=== PATIENT | female | born 1950 | race Caucasian/White ===

== ENCOUNTER 2016-05-22 15:29 | Emergency (ER) | payer OTHER ==
[2016-05-22 15:36] VITALS: O2SAT 94
--- NOTE | 2016-05-22 16:00 | EDPHY ---
H & P Stated Complaint: abd/low back pain/pressure with urination Time Seen by Provider: 05/22/16 15:47 HPI/ROS: CHIEF COMPLAINT: Inguinal pain, cloudy urine and back pain HISTORY OF PRESENT ILLNESS: The patient is a 65-year-old female who states that she has had intermittent inguinal pain for the last 3 weeks. No discoloration or swelling. Then over the last 2 days she has had bilateral low back pain. No fevers. No trauma. No weakness or numbness. No bleeding. No diarrhea or constipation. No nausea vomiting. Then today she had very cloudy urine. She is here wondering if she has a urine infection. She denies dysuria. She denies frequency. She occasionally has sweats but contributes this to menopause. REVIEW OF SYSTEMS: Constitutional: denies: chills, fever, recent illness, recent injury EENTM: denies: blurred vision, double vision, nose congestion Respiratory: denies: cough, shortness of breath Cardiac: denies: chest pain, irregular heart rate, lightheadedness, palpitations Gastrointestinal/Abdominal: denies: abdominal pain, diarrhea, nausea, vomiting, blood streaked stools Genitourinary: See HPI Musculoskeletal: See HPI Skin: denies: lesions, rash, jaundice, bruising Neurological: denies: headache, numbness, paresthesia, tingling, dizziness, weakness Hematologic/Lymphatic: denies: blood clots, easy bleeding, easy bruising Immunologic/allergic: denies: HIV/AIDS, transplant EXAM: GENERAL: Well-appearing, well-nourished and in no acute distress. HEAD: Atraumatic, normocephalic. EYES: Pupils equal round and reactive to light, extraocular movements intact, sclera anicteric, conjunctiva are normal. ENT: TMs normal, nares patent, oropharynx clear without exudates. Moist mucous membranes. NECK: Normal range of motion, supple without lymphadenopathy or JVD. LUNGS: Breath sounds clear to auscultation bilaterally and equal. No wheezes rales or rhonchi. HEART: Regular rate and rhythm without murmurs, rubs or gallops. ABDOMEN: Soft, nontender, normoactive bowel sounds. No guarding, no rebound. No masses appreciated. BACK: No CVA tenderness, no spinal tenderness, step-offs or deformities EXTREMITIES: Normal range of motion, no pitting or edema. No clubbing or cyanosis. NEUROLOGICAL: Cranial nerves II through XII grossly intact. Normal speech, normal gait. 5/5 strength, normal movement in all extremities, normal sensation PSYCH: Normal mood, normal affect. SKIN: Warm, dry, normal turgor, no visible rashes or lesions. Source: Patient Exam Limitations: No limitations - Personal History Current Tetanus/Diphtheria Vaccine: Yes - Medical/Surgical History Hx Asthma: No Hx Chronic Respiratory Disease: No Hx Diabetes: No Hx Cardiac Disease: No Hx Renal Disease: No Hx Cirrhosis: No Hx Alcoholism: No Hx HIV/AIDS: No Hx Splenectomy or Spleen Trauma: No Other PMH: L5 SPINAL IMPINGEMENT - Family History Significant Family History: Hypertension - Social History Smoking Status: Former smoker Alcohol Use: Sober Drug Use: None Constitutional: Initial Vital Signs Temperature (C) 37 C 05/22/16 15:34 Heart Rate 106 H 05/22/16 15:34 Respiratory Rate 20 05/22/16 15:34 Blood Pressure 123/97 H 05/22/16 15:34 O2 Sat (%) 94 05/22/16 15:34 O2 Delivery Mode Room Air Allergies/Adverse Reactions: cefuroxime axetil [From Ceftin] Allergy (Intermediate, Verified 05/22/16 15:31) Other-Enter Comments clarithromycin [From Biaxin] Allergy (Intermediate, Verified 05/22/16 15:31) SEVERE VAG ITCHING erythromycin base [Erythromycin Base] Allergy (Unknown, Verified 05/22/16 15:31) Unknown PERFUMES, CERTAIN SCENTS Allergy (Intermediate, Uncoded 03/24/15 10:55) Other-Enter Comments Home Medications: Medication Instructions Recorded FLUoxetine [Prozac 20 MG (*)] 40 mg PO DAILY 06/11/14 Famotidine [Pepcid 20 MG (*)] 40 mg PO DAILY 06/11/14 Herbals/Supplements -Info Only 1 ea PO DAILY 06/11/14 Multivits-Min/Iron/FA/Lutein 1 each PO DAILY 06/11/14 [Centrum Silver Women Tablet] [place]-3 Fatty Acids [Fish Oil 1000 1,000 mg PO TID 06/11/14 mg (*)] Pantoprazole Sodium [Protonix 40mg 40 mg PO DAILY 06/11/14 (*)] traMADol [Ultram 50 mg (*)] 50 mg PO Q4 PRN 06/11/14 Docusate Sodium [Colace 100 MG (*)] 100 mg PO BID #40 cap 06/27/14 Ondansetron Odt [Zofran Odt 4 mg 4 mg PO Q4 PRN #20 tab 06/27/14 (*)] Cephalexin [Keflex] 500 mg PO TID #21 cap 05/22/16 Myrbetriq 05/22/16 Medical Decision Making ED Course/Re-evaluation: The patient's urine is clearly infected. This adequately explains her symptoms. I will treat her with Keflex. She states that she has taken cephalosporins before without any difficulty. She did C diff after taking cefuroxime But was not technically allergic. We discussed cultures and results in 2 days. We discussed indications for returning. She is nontoxic Or septic appearing currently. Differential Diagnosis: Partial list of the Differential diagnosis considered include but were not limited to; urinary tract infection, kidney stone, hernia and although unlikely based on the history and physical exam, I also considered PID, diverticulitis. I discussed these differential diagnoses and the plan with the patient as well as the usual and expected course. The patient understands that the diagnosis is provisional and that in medicine we are not always correct and that further workup is often warranted. Usual and customary warnings were given. All of the patient's questions were answered. The patient was instructed to return to the emergency department should the symptoms at all worsen or return, otherwise to followup with the physician as we discussed. - Data Points Laboratory Results: 05/22/16 16:17 Urine Color YELLOW Urine Appearance MODERATELY TURBID Urine pH 5.0 (5.0-7.5) Ur Specific [place] 1.013 (1.002-1.030) Urine Protein 2+ H (NEGATIVE) Urine Ketones NEGATIVE (NEGATIVE) Urine Blood 2+ H (NEGATIVE) Urine Nitrate POSITIVE H (NEGATIVE) Urine Bilirubin NEGATIVE (NEGATIVE) Urine Urobilinogen NEGATIVE EU (0.2-1.0) Ur Leukocyte Esterase 3+ H (NEGATIVE) Urine RBC 15-25 H /hpf (0-3) Urine WBC 50-182 H /hpf (0-3) Ur Epithelial Cells 2+ H /lpf (NONE-1+) Urine Bacteria 1+ H /hpf (NONE SEEN) Urine Mucus TRACE /lpf (NONE-1+) Ur Culture Indicated? INDICATED H (NI) Urine Glucose NEGATIVE (NEGATIVE) Medications Given: Discontinued Medications Cephalexin HCl (Keflex) 500 mg PO EDNOW ONE PRN Reason: Protocol Stop: 05/22/16 16:53 Last Admin: 05/22/16 17:09 Dose: 500 mg Departure - Departure Disposition: Home, Routine, Self-Care Clinical Impression: Urinary tract infection Qualifiers: Urinary tract infection type: acute cystitis Hematuria presence: without hematuria Qualifier Code: (N30.00) Acute cystitis without hematuria Condition: Fair Instructions: Urinary Tract Infection in Women (ED) Referrals: Silvia Vazquez MD [Primary Care Provider] - As per Instructions Prescriptions: Cephalexin [Keflex] 500 mg PO TID #21 cap
[2016-05-22 16:40] LABS: COLOR YELLOW; LEUKOCYTE ESTERASE,URINE 3+ (NEGATIVE); NITRITE,URINE POSITIVE (NEGATIVE)
[2016-05-22 16:43] LABS: BACTERIA 1+ /hpf (NONE SEEN); MUCUS TRACE /lpf (NONE-1+); RBC,URINE 15-25 /hpf (0-3); WBC,URINE 50-182 /hpf (0-3)
[2016-05-22] MEDS ORDERED: CEPHALEXIN 500 MG CAP PO ONE (16:52)
[2016-05-22 17:19] VITALS: BP 142/84; PULSE 89; RESP 16; TEMP 99.6
== END 2016-05-22 17:15 | disposition home or self-care (01) ==
DX: N30.00 Acute cystitis without hematuria (principal); B96.89 Other specified bacterial agents as the cause of diseases classified elsewhere; Z87.891 Personal history of nicotine dependence

== ENCOUNTER 2016-10-21 10:32 | Emergency (ER) | payer OTHER ==
[2016-10-21 10:48] VITALS: TEMP 97.7
[2016-10-21 11:59] LABS: % IMMATURE GRANULYOCYTES 0.5 % (0.0-1.1); ABSOLUTE IMMATURE GRANULOCYTES 0.03 10^3/uL (0.00-0.10); ADD DIFF? NO; ADD MORPH? NO; ADD SCAN? NO; ATYPICAL LYMPHOCYTE FLAG 10 (0-99); FRAGMENT RBC FLAG 0 (0-99); HEMATOCRIT 42.1 % (38.0-47.0); HEMOGLOBIN 14.6 g/dL (12.6-16.3); LEFT SHIFT FLG 0 (0-99); LIPEMIA HEMOLYSIS FLAG 90 (0-99); MEAN CELL HEMOGLOBIN 33.6 pg (27.9-34.1); MEAN CELL HEMOGLOBIN CONCENTR. 34.7 g/dL (32.4-36.7); MEAN CELL VOLUME 96.8 fL (81.5-99.8); MEAN PLATELET VOLUME 10.5 fL (8.7-11.7); PLATELET CLUMPS FLAG 0 (0-99); PLATELET COUNT 291 10^3/uL (150-400); RED BLOOD CELL COUNT 4.35 10^6/uL (4.18-5.33); RED CELL DISTRIBUTION WIDTH 12.7 % (11.5-15.2)
[2016-10-21 12:04] LABS: ANION GAP 9 mEq/L (8-16); CALCIUM 9.8 mg/dL (8.5-10.4); CARBON DIOXIDE 23 mEq/l (22-31); CHLORIDE 105 mEq/L (97-110); GLOMERULAR FILTRATION RATE 56; GLUCOSE 87 mg/dL (70-100); POTASSIUM 4.2 mEq/L (3.5-5.2); SODIUM 137 mEq/L (134-144)
[2016-10-21 12:14] LABS: COLOR PALE YELLOW; NITRITE,URINE NEGATIVE (NEGATIVE)
[2016-10-21 12:19] LABS: LEUKOCYTE ESTERASE,URINE NEGATIVE (NEGATIVE)
[2016-10-21] MEDS ORDERED: HYDROmorphONE/DILAUDID 1 MG/ML SYR IVP ONE (12:58)
[2016-10-21] MEDS ORDERED: ONDANSETRON 4 MG/2 ML VIAL IVP ONE (12:58)
[2016-10-21] MEDS ORDERED: IOPAMIDOL (ISOVUE-300) 100 ML BTL ONE (13:05)
[2016-10-21 13:20] LABS: ALBUMIN 4.3 g/dL (3.5-5.0); BILIRUBIN,TOTAL 1.1 mg/dL (0.1-1.4); BILIRUBIN-CONJUGATED 0.4 mg/dL (0.0-0.5); BILIRUBIN-UNCONJUGATED 0.7 mg/dL (0.0-1.1); TOTAL PROTEIN 6.7 g/dL (6.3-8.2)
[2016-10-21 14:10] VITALS: RESP 16
--- NOTE | 2016-10-21 14:22 | EDPHY ---
H & P Smoking Status: Former smoker Time Seen by Provider: 10/21/16 12:44 HPI/ROS: CHIEF COMPLAINT: Abdominal pain HISTORY OF PRESENT ILLNESS: 65-year-old female presents to the emergency department with diffuse abdominal pain. The pain began 2 days ago and then improved and then recurred early this morning. She also had severe left flank pain which is now resolved. No nausea or vomiting. No diarrhea. Her appetite has been normal. No chest pain or difficulty breathing. No fevers or chills. No reported trauma. No urinary symptoms. No treatment at home. REVIEW OF SYSTEMS: Constitutional: No fever, no chills. Eyes: No double or blurry vision. ENT: No sore throat. Respiratory: No cough, no shortness of breath. Cardiac: No chest pain. Gastrointestinal: Abdominal pain as above. No vomiting or diarrhea Genitourinary: No dysuria. Musculoskeletal: No neck or back pain. Skin: No rashes. Neurological: No headache. 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 Eyes: Pupils equal and round. Extraocular motions are all intact. ENT: Mouth: Mucous membranes moist. Respiratory: No wheezing, rhonchi, or rales, lungs are clear to auscultation. Cardiovascular: Regular rate and rhythm. Gastrointestinal: Abdomen is soft. She has tenderness with palpation especially in the epigastric area as well as just inferior to this area. She is also tender in the left and the right lower quadrant. There is no rebound, guarding or masses noted. No peritoneal signs. No CVA tenderness on the right, however she does have tenderness with palpation in the left flank. No rash appreciated. Specifically no vesicular lesions. Neurological: Alert and oriented x 3, cranial nerves II through XII grossly intact Skin: Warm and dry, no rashes. Musculoskeletal: Nontender to palpate along the cervical, thoracic or lumbar spine. Neck is supple. Extremities: Full range of motion and no peripheral edema. Psychiatric: Patient is oriented X 3, there is no agitation. (Ute Lloyd) Constitutional: Initial Vital Signs Temperature (C) 36.5 C 10/21/16 10:46 Heart Rate 80 10/21/16 10:46 Respiratory Rate 18 10/21/16 10:46 Blood Pressure 146/95 H 10/21/16 10:46 O2 Sat (%) 98 10/21/16 10:46 O2 Delivery Mode Room Air Allergies/Adverse Reactions: cefuroxime axetil [From Ceftin] Allergy (Intermediate, Verified 10/21/16 10:44) Other-Enter Comments clarithromycin [From Biaxin] Allergy (Intermediate, Verified 10/21/16 10:44) SEVERE VAG ITCHING erythromycin base [Erythromycin Base] Allergy (Unknown, Verified 10/21/16 10:44) Unknown PERFUMES, CERTAIN SCENTS Allergy (Intermediate, Uncoded 03/24/15 10:55) Other-Enter Comments Home Medications: Medication Instructions Recorded FLUoxetine [Prozac 20 MG (*)] 40 mg PO DAILY 06/11/14 Famotidine [Pepcid 20 MG (*)] 40 mg PO DAILY 06/11/14 Pantoprazole Sodium [Protonix 40mg 40 mg PO DAILY 06/11/14 (*)] Myrbetriq 05/22/16 Medical Decision Making - Diagnostics EKG Interpretation: EKG interpreted by me shows normal sinus rhythm with normal interval. Left axis deviation. QRS is normal there is no significant ST elevation or depression. There is no arrhythmia. The rate is 67 (Malik Ribeiro) ED Course/Re-evaluation: 65-year-old female presents to the emergency department with abdominal pain. An IV was established and laboratory studies were drawn. CBC, chemistries including LFTs and lipase and urine were all within normal limits. Patient continued to complain of ongoing abdominal pain. Given her history of previous carcinoid tumor, CT imaging of the abdomen and pelvis was ordered which was essentially unremarkable. No evidence of obstruction or mass. EKG was also performed which revealed normal sinus rhythm. Case was discussed with Dr. Malik Ribeiro, secondary supervising physician, who did not directly evaluate the patient but agrees with discharge the patient agrees with treatment and plan. The patient states "I'm starving." The patient was instructed to have close follow-up with primary care provider. She was also instructed to return to the emergency department if she developed recurring abdominal pain, vomiting, fever, chills, or if she felt worse in any way. (Ute Lloyd) I did not see this patient while she was in the emergency department. However her care was discussed with the PA while the patient was in the department. I agree with treatment plan and management (Malik Ribeiro) Differential Diagnosis: Including but not limited to bowel obstruction, gastritis, cholecystitis, cholelithiasis, pancreatitis, hepatitis, kidney stone, pyelonephritis, colitis, bowel obstruction (Ute Lloyd) - Data Points Laboratory Results: Laboratory Results 10/21/16 11:25 10/21/16 11:25 Medications Given: Discontinued Medications Hydromorphone HCl (Dilaudid) 0.5 mg IVP EDNOW ONE Stop: 10/21/16 12:59 Last Admin: 10/21/16 13:53 Dose: 0.5 mg Ondansetron HCl (Zofran) 4 mg IVP EDNOW ONE Stop: 10/21/16 12:59 Last Admin: 10/21/16 13:53 Dose: 4 mg Departure - Departure Disposition: Home, Routine, Self-Care Clinical Impression: Abdominal pain Condition: Good Instructions: Acute Abdominal Pain (ED) Additional Instructions: Diet and activity as tolerated. Abdominal Pain: Return to the Emergency Department immediately for increasing pain, fever, vomiting, or if not completely better in 8-12 hours. Referrals: Silvia Vazquez MD [Primary Care Provider] - 1-2 days without fail
--- NOTE | 2016-10-21 14:43 | CPEKG ---
Heart Rate: 67 RR Interval: 896 P-R Interval: 164 QRSD Interval: 94 QT Interval: 428 QTC Interval: 452 P [place]: 55 QRS [place]: -30 T Wave [place]: 22 EKG Severity - OTHERWISE NORMAL ECG - EKG Impression: SINUS RHYTHM EKG Impression: LEFT AXIS DEVIATION Electronically Signed By: Malik Ribeiro 21-Oct-2016 16:13:35
[2016-10-21 15:22] VITALS: BP 132/76; PULSE 73; O2SAT 92
== END 2016-10-21 15:20 | disposition home or self-care (01) ==
DX: R10.13 Epigastric pain (principal); Z87.891 Personal history of nicotine dependence
CPT/HCPCS: 96374; J1170; J2405; Q9967

== ENCOUNTER → 2017-04-13 | Outpatient (CLI) | payer OTHER | LOC: FIMAGING 15:42 | PROVIDERS: ATTEND Registered Nurse | DX: Z12.31 Encounter for screening mammogram for malignant neoplasm of breast (principal) | CPT/HCPCS: G0202 ==

== ENCOUNTER → 2018-02-15 | Outpatient (CLI) | payer OTHER | LOC: FIMAGING 11:31 | PROVIDERS: ATTEND Registered Nurse | DX: Z13.820 Encounter for screening for osteoporosis (principal); M85.89 Other specified disorders of bone density and structure, multiple sites; E28.39 Other primary ovarian failure; Z78.0 Asymptomatic menopausal state; Z79.52 Long term (current) use of systemic steroids; Z79.890 Hormone replacement therapy ==

== ENCOUNTER → 2018-04-21 | Outpatient (CLI) | payer OTHER | END | disposition home or self-care (01) | LOC: FIMAGING 14:46 | PROVIDERS: ATTEND Registered Nurse | DX: Z12.31 Encounter for screening mammogram for malignant neoplasm of breast (principal) ==

== ENCOUNTER → 2018-05-26 | Outpatient (CLI) | payer OTHER | LOC: FIMAGING 14:40 | PROVIDERS: ATTEND Internal Medicine Pulmonary Disease | DX: R05 Cough (principal); R06.02 Shortness of breath; J98.11 Atelectasis ==

== ENCOUNTER → 2018-06-07 | Outpatient (CLI) | payer OTHER | LOC: BHFA 11:30 | PROVIDERS: ATTEND Internal Medicine Cardiovascular Disease | DX: R01.1 Cardiac murmur, unspecified (principal) ==

== ENCOUNTER 2018-08-09 17:24 | Inpatient (IN) | payer OTHER ==
--- NOTE | 2018-08-09 18:28 | EDPHY ---
H & P Stated Complaint: back pain Time Seen by Provider: 08/09/18 18:28 HPI/ROS: CHIEF COMPLAINT: Back pain, fever, myalgias HISTORY OF PRESENT ILLNESS: The patient presents the ED with complaints of acute back pain. She does have a history of lumbar disc herniation. She has received epidural steroid injections in the past. Her last epidural injection was in January of last year. The patient did take prednisone today which she has used for sciatica in the past. The patient reports that she has had a chronic cough since April. She denies any dysuria. The patient does report nasal congestion. She denies any abdominal pain, vomiting or diarrhea. The patient reports that the pain in her back is fairly typical of her sciatica. She denies any bowel or bladder dysfunction. She denies saddle anesthesia. REVIEW OF SYSTEMS: A comprehensive 10 point review of systems is otherwise negative aside from elements mentioned in the history of present illness. Source: Patient Exam Limitations: No limitations - Personal History Current Tetanus/Diphtheria Vaccine: Yes Current Tetanus Diphtheria and Acellular Pertussis (TDAP): Yes - Medical/Surgical History Hx Asthma: No Hx Chronic Respiratory Disease: No Hx Diabetes: No Hx Cardiac Disease: No Hx Renal Disease: No Hx Cirrhosis: No Hx Alcoholism: No Hx HIV/AIDS: No Hx Splenectomy or Spleen Trauma: No Other PMH: L5 SPINAL IMPINGEMENT. depression - Social History Smoking Status: Former smoker - Physical Exam Exam: General Appearance: Alert, no distress Eyes: Pupils equal and round no pallor or injection ENT, Mouth: Mucous membranes moist Respiratory: There are no retractions, lungs are clear to auscultation Cardiovascular: Regular rate and rhythm Gastrointestinal: Abdomen is soft and nontender, no masses, bowel sounds normal Neurological: A&O, normal motor function, normal sensory exam, normal cranial nerves Skin: Warm and dry, no rashes Musculoskeletal: Neck is supple nontender Extremities: symmetrical, full range of motion Constitutional: Initial Vital Signs Temperature (C) 38.2 C 08/09/18 17:32 Heart Rate 116 H 08/09/18 17:32 Respiratory Rate 20 08/09/18 17:32 Blood Pressure 150/85 H 08/09/18 17:32 O2 Sat (%) 95 08/09/18 17:32 O2 Delivery Mode Room Air Allergies/Adverse Reactions: cefuroxime axetil [From Ceftin] Allergy (Intermediate, Verified 08/09/18 17:29) Other-Enter Comments clarithromycin [From Biaxin] Allergy (Intermediate, Verified 08/09/18 17:29) SEVERE VAG ITCHING erythromycin base [Erythromycin Base] Allergy (Unknown, Verified 08/09/18 17:29) Unknown PERFUMES, CERTAIN SCENTS Allergy (Intermediate, Uncoded 08/09/18 17:29) Other-Enter Comments Home Medications: Medication Instructions Recorded FLUoxetine [Prozac 20 MG (*)] 40 mg PO DAILY 06/11/14 Famotidine [Pepcid 20 MG (*)] 40 mg PO DAILY 06/11/14 Pantoprazole Sodium [Protonix 40mg 40 mg PO DAILY 06/11/14 (*)] Myrbetriq 05/22/16 Advair 100/50 (*) 08/09/18 Estradiol 08/09/18 Fish Oil 1,000 mg Softgel 08/09/18 Flonase Nasal [place] 08/09/18 Meloxicam 08/09/18 Montelukast Sodium 08/09/18 Ranitidine HCl 08/09/18 Testosterone 08/09/18 Tramadol HCl 08/09/18 Ventolin Hfa 08/09/18 Medical Decision Making - Diagnostics Imaging Results: Imaging Impressions Lumbar Spine MRI 08/09/18 19:36 Impression: No evidence for epidural abscess or diskitis. Multilevel degenerative change, chronically present since October 2016. Results discussed with Dr. Wilbur Chaparro at 9:15 PM Chest X-Ray 08/09/18 21:24 Impression: Nothing acute identified. No source for fever. ED Course/Re-evaluation: Patient presents the ED for evaluation of lumbar pain, sciatic symptoms in acute fever. The patient has had a chronic cough for the past several months and denies any acute change in the character of that cough. She has no complaints of dysuria, abdominal pain or diarrhea. The patient was noted to be neurologically intact. There are no external signs of infection noted on exam. Given her fever and lumbar pain with prior history of epidural steroid injection a MRI with and without contrast was obtained. There is no evidence of an obvious epidural abscess, diskitis or osteomyelitis. The patient is noted to have elevated CRP and leukocytosis. The patient has a negative flu test. At this point time I see no obvious source of a bacterial infection. However I do feel would be prudent to observe the patient this evening. She continues to have ongoing diffuse back pain. She has no meningeal symptoms. Consultation is made with the hospitalist service. Patient will be admitted by Dr. Callejas. Patient does have SIRS + unspecified infection. She has no evidence of severe sepsis. Initial lactic acid is normal. Differential Diagnosis: Differential diagnosis considered includes discitis, osteomyelitis, viral syndrome, bacteremia, urinary tract infection, pyelonephritis, pneumonia - Data Points Laboratory Results: Laboratory Results 08/09/18 18:43 08/09/18 18:43 08/09/18 08/09/18 08/09/18 19:20 18:43 18:43 WBC RBC Hgb Hct 41.1 % % (38.0-47.0) MCV MCH MCHC RDW Plt Count MPV Neut % (Auto) Lymph % (Auto) Stone % (Auto) Eos % (Auto) Baso % (Auto) Nucleat RBC Rel Count Absolute Neuts (auto) Absolute Lymphs (auto) Absolute Monos (auto) Absolute Eos (auto) Absolute Basos (auto) Absolute Nucleated RBC Immature Gran % Immature Gran # RBC/WBC/PLT Morphology Platelet Estimate ESR 12 MM/HR MM/HR (0-30) Sodium Potassium Chloride Carbon Dioxide Anion Gap BUN Creatinine Estimated GFR Glucose Calcium C-Reactive Protein 47.3 mg/L H mg/L (<10.0) Urine Color YELLOW Urine Appearance CLEAR Urine pH 6.0 (5.0-7.5) Ur Specific [place] 1.009 (1.002-1.030) Urine Protein NEGATIVE (NEGATIVE) Urine Ketones NEGATIVE (NEGATIVE) Urine Blood NEGATIVE (NEGATIVE) Urine Nitrate NEGATIVE (NEGATIVE) Urine Bilirubin NEGATIVE (NEGATIVE) Urine Urobilinogen 2.0 EU H EU (0.2-1.0) Ur Leukocyte Esterase NEGATIVE (NEGATIVE) Urine Glucose NEGATIVE (NEGATIVE) Nasal Influenza A PCR Nasal Influenza B PCR 08/09/18 08/09/18 08/09/18 18:43 18:43 18:29 WBC 17.75 10^3/uL H 10^3/uL (3.80-9.50) RBC 4.31 10^6/uL 10^6/uL (4.18-5.33) Hgb 14.5 g/dL g/dL (12.6-16.3) Hct 41.5 % % (38.0-47.0) MCV 96.3 fL fL (81.5-99.8) MCH 33.6 pg pg (27.9-34.1) MCHC 34.9 g/dL g/dL (32.4-36.7) RDW 12.6 % % (11.5-15.2) Plt Count 316 10^3/uL 10^3/uL (150-400) MPV 10.1 fL fL (8.7-11.7) Neut % (Auto) 95.6 % H % (39.3-74.2) Lymph % (Auto) 1.7 % L % (15.0-45.0) Stone % (Auto) 2.0 % L % (4.5-13.0) Eos % (Auto) 0.1 % L % (0.6-7.6) Baso % (Auto) 0.1 % L % (0.3-1.7) Nucleat RBC Rel Count 0.0 % % (0.0-0.2) Absolute Neuts (auto) 16.97 10^3/uL H 10^3/uL (1.70-6.50) Absolute Lymphs (auto) 0.30 10^3/uL L 10^3/uL (1.00-3.00) Absolute Monos (auto) 0.36 10^3/uL 10^3/uL (0.30-0.80) Absolute Eos (auto) 0.02 10^3/uL L 10^3/uL (0.03-0.40) Absolute Basos (auto) 0.02 10^3/uL 10^3/uL (0.02-0.10) Absolute Nucleated RBC 0.00 10^3/uL 10^3/uL (0-0.01) Immature Gran % 0.5 % % (0.0-1.1) Immature Gran # 0.09 10^3/uL 10^3/uL (0.00-0.10) RBC/WBC/PLT Morphology TNP Platelet Estimate TNP ESR Sodium 129 mEq/L L mEq/L (135-145) Potassium 4.4 mEq/L mEq/L (3.5-5.2) Chloride 98 mEq/L mEq/L (97-110) Carbon Dioxide 20 mEq/l L mEq/l (22-31) Anion Gap 11 mEq/L mEq/L (6-14) BUN 11 mg/dL mg/dL (7-23) Creatinine 0.9 mg/dL mg/dL (0.6-1.0) Estimated GFR > 60 Glucose 169 mg/dL H mg/dL (70-100) Calcium 9.9 mg/dL mg/dL (8.5-10.4) C-Reactive Protein Urine Color Urine Appearance Urine pH Ur Specific [place] Urine Protein Urine Ketones Urine Blood Urine Nitrate Urine Bilirubin Urine Urobilinogen Ur Leukocyte Esterase Urine Glucose Nasal Influenza A PCR NEGATIVE FOR FLU A (NEGATIVE) Nasal Influenza B PCR NEGATIVE FOR FLU B (NEGATIVE) Medications Given: Discontinued Medications Hydromorphone HCl (Dilaudid) 0.5 mg IVP EDNOW ONE Stop: 08/09/18 21:27 Last Admin: 08/09/18 21:33 Dose: 0.5 mg Morphine Sulfate (Morphine) 4 mg IVP EDNOW ONE Stop: 08/09/18 19:32 Last Admin: 08/09/18 19:32 Dose: 4 mg Departure - Departure Disposition: [facility] Inpatient Acute Clinical Impression: Fever, Back pain, Sepsis Condition: Fair
[2018-08-09 18:58] LABS: PLATELET COUNT 316 10^3/uL (150-400)
[2018-08-09] MEDS ORDERED: GADOBUTROL 10 ML VIAL IVP ONE (20:21)
[2018-08-09] MEDS ORDERED: HYDROmorphONE/DILAUDID 2 MG/ML INJ IVP ONE (21:26)
[2018-08-09] MEDS ORDERED: HYDROmorphONE/DILAUDID 1 MG/ML INJ ONE (21:27)
[2018-08-09] MEDS ORDERED: ONDANSETRON DISINTEGRATING 4 MG TAB PO PRN (22:22)
[2018-08-09] MEDS ORDERED: HYDROmorphONE/DILAUDID 1 MG/ML INJ IVP PRN (22:22)
[2018-08-09] MEDS ORDERED: ONDANSETRON 4 MG/2 ML VIAL IVP PRN (22:22)
--- NOTE | 2018-08-09 23:29 | PDGENHP ---
History and Physical - Chief Complaint Back pain, fever - History of Present Illness 67 yo F w/ hx of asthma and chronic back pain presents with back pain and fever. The patient has daily, chronic back pain. Her usual pain is described as lower lumbar pain across her entire back with radiation to her R shi/calf. Today she developed pain of the same nature but much greater in severity. She also has noted nasal congestion and body aches. She says she has had several URI 's so far this year. She came in to the ED due to the pain. In the ED she was noted to be febrile, tachycardic, and have an elevated WBC. For this reason an MRI of her L-spine was obtained, which did not demonstrate diskitis, OM, or epidural abscess. She denies any localizing symptoms of infection aside from those listed above. She is being admitted for pain control and observation. Case discussed with Dr. Callejas; records reviewed and summarized above. History Information - Allergies/Home Medication List Allergies/Adverse Reactions: cefuroxime axetil [From Ceftin] Allergy (Intermediate, Verified 08/09/18 17:29) Other-Enter Comments clarithromycin [From Biaxin] Allergy (Intermediate, Verified 08/09/18 17:29) SEVERE VAG ITCHING erythromycin base [Erythromycin Base] Allergy (Unknown, Verified 08/09/18 17:29) Unknown PERFUMES, CERTAIN SCENTS Allergy (Intermediate, Uncoded 08/09/18 17:29) Other-Enter Comments Home Medications: Pantoprazole Sodium [Protonix 40mg (*)] 40 mg PO BID 06/11/14 [Last Taken 09:00] Acetaminophen [Tylenol ES 500 mg (*)] 500 mg PO Q6H PRN 08/09/18 [Last Taken Unknown] Albuterol [Ventolin Hfa Inhaler] 2 puffs IH DAILY PRN 08/09/18 [Last Taken Unknown] Calcium Carb/D3/Magnesium/Zinc [Bassem Mag Zinc + D Tablet] 1 each PO DAILY [Last Taken Unknown] Cholecalciferol (Vitamin D3) [Vitamin D3] 4,000 unit PO DAILY 08/09/18 [Last Taken Unknown] Di-Indole Methane - Dim 300mg 600 mg PO DAILY 08/09/18 [Last Taken 08/09/18 09: 00] Estradiol [Estradiol 1 MG (*)] 0 mg PO HS 08/09/18 [Last Taken 08/08/18 21:00] FLUoxetine HCL [Fluoxetine HCl] 40 mg PO DAILY 08/09/18 [Last Taken 08/09/18 09: 00] Fluticasone Nasal [Flonase Nasal [place] (RX)] 1 sprays NASAL BID 08/09/18 [Last Taken 08/09/18 09:00] Fluticasone/Salmeterol [Advair Hfa 115-21 Mcg Inhaler] 2 puffs IH BID 08/09/18 [ Last Taken 08/09/18 09:00] Herbals/Supplements -Info Only 1 ea PO DAILY 08/09/18 [Last Taken 08/09/18 09:00 ] Lactobacillus Acidophilus [ACIDOPHILUS] 2 each PO DAILY PRN 08/09/18 [Last Taken Unknown] Meloxicam 15 mg PO DAILY 08/09/18 [Last Taken 08/08/18 09:00] Mirabegron [Myrbetriq] 50 mg PO DAILY 08/09/18 [Last Taken 08/09/18 09:00] Montelukast Sodium [Singulair 10 mg (*)] 10 mg PO HS 08/09/18 [Last Taken 21:00] Multivitamins [Multivitamin (*)] 1 each PO DAILY 08/09/18 [Last Taken Unknown] [place]-3S/Dha/Epa/Fish Oil [Fish Oil [place]-3 Softgel] 500 mg PO BID 08/09/18 [ Last Taken 08/06/18] Ranitidine HCl 300 mg PO HS 08/09/18 [Last Taken 08/08/18 21:00] Testosterone Micronized 4 mg PO DAILY 08/09/18 [Last Taken 08/09/18 09:00] traMADol [Ultram 50 mg (*)] 50 mg PO DAILY PRN 08/09/18 [Last Taken Unknown] I have personally reviewed and updated: family history, medical history - Past Medical History arthritis, asthma - Surgical History Additional surgical history: R knee surgery. Rotator cuff surgery - Family History Additional family history: No hx AI disease - Social History Smoking Status: Former smoker Review of Systems Review of Systems: ROS: 10pt was reviewed & negative except for what was stated in HPI & below Physical Exam Physical Exam: Temp Pulse Resp BP Pulse Ox 37.3 C 107 H 17 114/81 H 91 L 08/09/18 22:27 08/09/18 22:27 08/09/18 22:27 08/09/18 22:27 08/09/18 22:27 Constitutional: appears nourished, uncomfortable Eyes: PERRL, EOMI Ears, Nose, Mouth, Throat: moist mucous membranes, oral thrush Cardiovascular: regular rate and rhythym, systolic murmur Respiratory: no respiratory distress, clear to auscultation Gastrointestinal: normoactive bowel sounds, soft, non-tender abdomen Skin: warm, erythema (Nasal bridge, chronic per patient) Musculoskeletal: full muscle strength, other (No TTP along spine) Neurologic: AAOx3, CN II-XII Intact Psychiatric: interacting appropriately, not anxious Lab Data & Imaging Review 08/09/18 18:43 08/09/18 18:43 WBC 17.75 10^3/uL (3.80-9.50) H 08/09/18 18:43 RBC 4.31 10^6/uL (4.18-5.33) 08/09/18 18:43 Hgb 14.5 g/dL (12.6-16.3) 08/09/18 18:43 Hct 41.1 % (38.0-47.0) 08/09/18 18:43 MCV 96.3 fL (81.5-99.8) 08/09/18 18:43 MCH 33.6 pg (27.9-34.1) 08/09/18 18:43 MCHC 34.9 g/dL (32.4-36.7) 08/09/18 18:43 RDW 12.6 % (11.5-15.2) 08/09/18 18:43 Plt Count 316 10^3/uL (150-400) 08/09/18 18:43 MPV 10.1 fL (8.7-11.7) 08/09/18 18:43 Neut % (Auto) 95.6 % (39.3-74.2) H 08/09/18 18:43 Lymph % (Auto) 1.7 % (15.0-45.0) L 08/09/18 18:43 [place] % (Auto) 2.0 % (4.5-13.0) L 08/09/18 18:43 Eos % (Auto) 0.1 % (0.6-7.6) L 08/09/18 18:43 Baso % (Auto) 0.1 % (0.3-1.7) L 08/09/18 18:43 Nucleat RBC Rel Count 0.0 % (0.0-0.2) 08/09/18 18:43 Absolute Neuts (auto) 16.97 10^3/uL (1.70-6.50) H 08/09/18 18:43 Absolute Lymphs (auto) 0.30 10^3/uL (1.00-3.00) L 08/09/18 18:43 Absolute Monos (auto) 0.36 10^3/uL (0.30-0.80) 08/09/18 18:43 Absolute Eos (auto) 0.02 10^3/uL (0.03-0.40) L 08/09/18 18:43 Absolute Basos (auto) 0.02 10^3/uL (0.02-0.10) 08/09/18 18:43 Absolute Nucleated RBC 0.00 10^3/uL (0-0.01) 08/09/18 18:43 Immature Gran % 0.5 % (0.0-1.1) 08/09/18 18:43 Immature Gran # 0.09 10^3/uL (0.00-0.10) 08/09/18 18:43 RBC/WBC/PLT Morphology TNP 08/09/18 18:43 Platelet Estimate TNP 08/09/18 18:43 ESR 12 MM/HR (0-30) 08/09/18 18:43 VBG Lactic Acid 1.3 mmol/L (0.7-2.1) 08/09/18 21:40 Sodium 129 mEq/L (135-145) L 08/09/18 18:43 Potassium 4.4 mEq/L (3.5-5.2) 08/09/18 18:43 Chloride 98 mEq/L (97-110) 08/09/18 18:43 Carbon Dioxide 20 mEq/l (22-31) L 08/09/18 18:43 Anion Gap 11 mEq/L (6-14) 08/09/18 18:43 BUN 11 mg/dL (7-23) 08/09/18 18:43 Creatinine 0.9 mg/dL (0.6-1.0) 08/09/18 18:43 Estimated GFR > 60 08/09/18 18:43 Glucose 169 mg/dL (70-100) H 08/09/18 18:43 Calcium 9.9 mg/dL (8.5-10.4) 08/09/18 18:43 C-Reactive Protein 47.3 mg/L (<10.0) H 08/09/18 18:43 Procalcitonin 0.03 ng/mL (0.02-0.10) 08/09/18 18:43 Urine Color YELLOW 08/09/18 19:20 Urine Appearance CLEAR 08/09/18 19:20 Urine pH 6.0 (5.0-7.5) 08/09/18 19:20 Ur Specific [place] 1.009 (1.002-1.030) 08/09/18 19:20 Urine Protein NEGATIVE (NEGATIVE) 08/09/18 19:20 Urine Ketones NEGATIVE (NEGATIVE) 08/09/18 19:20 Urine Blood NEGATIVE (NEGATIVE) 08/09/18 19:20 Urine Nitrate NEGATIVE (NEGATIVE) 08/09/18 19:20 Urine Bilirubin NEGATIVE (NEGATIVE) 08/09/18 19:20 Urine Urobilinogen 2.0 EU (0.2-1.0) H 08/09/18 19:20 Ur Leukocyte Esterase NEGATIVE (NEGATIVE) 08/09/18 19:20 Urine Glucose NEGATIVE (NEGATIVE) 08/09/18 19:20 Nasal Influenza A PCR NEGATIVE FOR FLU A (NEGATIVE) 08/09/18 18:29 Nasal Influenza B PCR NEGATIVE FOR FLU B (NEGATIVE) 08/09/18 18:29 Imaging Review: Imaging Impressions Lumbar Spine MRI 08/09/18 19:36 Impression: No evidence for epidural abscess or diskitis. Multilevel degenerative change, chronically present since October 2016. Results discussed with Dr. Wilbur Chaparro at 9:15 PM Chest X-Ray 08/09/18 21:24 Impression: Nothing acute identified. No source for fever. Assessment & Plan Assessment: 67 yo F w/ hx of asthma and chronic back pain presents with fever and back pain. Plan: 1. SIRS - Fever, tachycardia, and leukocytosis noted on admission but no source of infection identified. The initial concern was spinal infection noting increased back pain but MRI of the L-spine does not demonstrate evidence of infection. CXR and UA are also not consistent with infection. Her only other symptoms are nasal congestion and body aches so URI or sinusitis are other considerations. - Admit for observation - Blood cultures ordered and pending - Will observe off of antibiotics for now - Obtain respiratory PCR, procalcitonin - If worsening, could consider empirically treating sinusitis or imaging T/L spine 2. Acute on chronic back pain - Bilateral lumbar pain w/ radiation down her R leg. These are her usual back pain symptoms but increased in severity today. MRI L-spine performed on admission stable from prior. - Pain control - PT/OT evaluations - Infectious work-up as above 3. Hyponatremia - Na 129 on admission; this could represent hypovolemia related to infection or SIADH from increased pain. - Obtain [place], [place] - Trial 500 mL NS bolus - Repeat BMP in the AM 4. Asthma - No evidence of acute exacerbation. - Continue home medications pending reconciliation Diet - Regular Code - Full Ppx - LMWH Dispo - Admit under observation status
[2018-08-09] MEDS: oxyCODONE IR 5 MG TAB PO PRN (23:30)
[2018-08-09] MEDS: ACETAMINOPHEN 325 MG TAB PO PRN (23:30)
[2018-08-09] MEDS ORDERED: NS 500 ML IV ONE (23:36)
[2018-08-10] MEDS: oxyCODONE IR 5 MG TAB PO PRN ×3 (04:31→16:12)
[2018-08-10 04:56] LABS: PLATELET COUNT 263 10^3/uL (150-400)
[2018-08-10] MEDS: NYSTATIN SUSP 500000 UNIT/5 ML UD LIQ PO SCH ×4 (05:22→22:55)
[2018-08-10] MEDS: ENOXAPARIN 40 MG/0.4 ML SYR SC SCH (08:20)
[2018-08-10] MEDS: ACETAMINOPHEN 325 MG TAB PO PRN ×2 (11:12→18:02)
--- NOTE | 2018-08-10 13:50 | ASMTCMCOM ---
CM Note CM Note Notes: Pt who has chronic back pain is in [facility] for back pain and fever. Pt resides with . No therapies ordered, discussed with JAYDON Little who reports therapies are not needed for this pt. Anticipate pt will d/c when medically stable, no CM d/c needs identified. CM available for changes/needs. D/c plan: Independent Date Signed: 08/10/2018 01:49 PM Electronically Signed By:YUVAL Thornton
[2018-08-10] MEDS ORDERED: diphenhydrAMINE 25 MG CAP PO PRN (14:12)
[2018-08-10] MEDS ORDERED: traMADol 50 MG TAB PO PRN (14:51)
[2018-08-10] MEDS ORDERED: ACETAMINOPHEN 500 MG TAB PO PRN (14:51)
[2018-08-10] MEDS ORDERED: LACTOBACILLUS ACIDOPHILUS PO PRN (14:51)
[2018-08-10] MEDS ORDERED: predniSONE 20 MG TAB PO ONE (15:02)
--- NOTE | 2018-08-10 15:10 | HOSPPROG ---
Hospitalist Progress Note Assessment/Plan: 67 yo F w chronic lbp, asthma, admited w fever, thrush and now facial rash facial rash: suspect this is rxn to nystatin, given benadryl given concurrent fever, concern for celluliutits 1. pred 40 once 2. empirically treat for cellulitis w vanc , check facial ct fever, dyspnea: on unusual hormone replacement w testosterone- check ct pe low back pain: mri w no abscess, there is no cellulitis on exam, as suggested by MRI asthma: continue meds no wheezing proph: lmwh thrush: fluconazole X 1 attributable to steroid inhaler dispo: change to inpt Subjective: cxr w no infiltrate (interp by me). new facial rash w low grade temps Objective: Vital Signs Temp Pulse Resp BP Pulse Ox 37.7 C 90 16 106/67 95 08/10/18 11:07 08/10/18 11:07 08/10/18 11:07 08/10/18 11:07 08/10/18 11:07 Microbiology 08/10/18 02:30 Respiratory Panel (PCR) - Final Nasal, Sinus - Swab No Organism Detected By Pcr Laboratory Results 08/10/18 04:19 08/10/18 04:19 08/09/18 08/10/18 08/11/18 05:59 05:59 05:59 Intake Total 200 800 Output Total 500 500 Balance -300 300 - Physical Exam Constitutional: no apparent distress, appears nourished Eyes: PERRL, anicteric sclera Ears, Nose, Mouth, Throat: moist mucous membranes, hearing normal, other ( redness w edema on cheeks b/l. warm) Cardiovascular: regular rate and rhythym, no murmur, rub, or gallop Respiratory: no respiratory distress, no rales or rhonchi Gastrointestinal: normoactive bowel sounds, soft, non-tender abdomen Genitourinary: no bladder fullness, hemorrhoids, No martinez in urethra Skin: warm, normal color Musculoskeletal: full muscle strength Neurologic: AAOx3 ICD10 Worksheet Patient Problems: Problems Problem Status Onset Back pain Acute Fever Acute Sepsis Acute Osteoarthritis of knee Acute
[2018-08-10] MEDS ORDERED: IOPAMIDOL (ISOVUE 370) 100 ML BTL IV ONE (15:23)
[2018-08-10] MEDS ORDERED: ALBUTEROL 60 PUFFS/8 GM MDI IH PRN (15:30)
[2018-08-10] MEDS ORDERED: VANCOMYCIN HCL/NORMAL SALINE 250 ML IV SCH (15:30)
[2018-08-10] MEDS ORDERED: VANCOMYCIN 1.5 GM in NS 250 ML IV SCH (16:00)
[2018-08-10] MEDS: Mirabegron [Myrbetriq] 50 MG PO SCH (16:14)
[2018-08-10] MEDS: FLUoxetine 20 MG CAP PO SCH (16:17)
[2018-08-10] MEDS: PANTOPRAZOLE SODIUM 40 MG TAB PO SCH (20:20)
[2018-08-10] MEDS: FLUTICASONE NASAL 120 SPRAYS/16 GM MDI NS SCH (20:22)
--- NOTE | 2018-08-10 20:55 | PDHOSCONS ---
History and Physical - History of Present Illness I was notified at 6:00 pm by daytime RN regarding patient's facial swelling after receiving vancomycin IV. I was at the patient's bedside shortly thereafter. This was my 1st encounter with the patient so unfortunately I was not able to see a baseline; facial swelling and redness had been noted earlier in the day which was acknowledged by daytime hospitalist with imaging and prednisone. CT of face showed no evidence of maxillofacial abscess or definite cellulitis and chest CT a show no definite PE, aortic aneurysm or dissection, pericardial effusion, pleural effusion, pneumothorax or significant adenopathy. It also did not show acute pneumonia or suspicious pulmonary nodules. Objectively speaking, I noted a deep Isaiah erythema to bilateral cheeks with moderate edema and left bilateral eyelids swelling. Bilateral cheeks were taunt. Subjectively, she reported difficulty breathing through her nose however this seems to be a chronic issue and not an acute issue, difficulty smiling and difficulty opening her left eye. She was not compromised with her airways. I instructed the daytime nurse to give her 50 mg of Benadryl and ice packs. Vital signs during this time blood pressure was 121/78, heart rate was 103, and temperature was 37.7 degrees. I evaluated the patient 30 min later. Subjectively speaking, patient reports mild relief with the ability to smile minimally and she felt like her cheeks were not as swollen. Once again airways were not compromised during this time. Objectively, her bilateral cheek erythema had reduced to a moderate erythema and her cheeks were less taut. Vital signs at this time blood pressure is 121/ 78 heart rate was 82 respirations were 14 and she is on 93 % with 1 L oxygen. I once again re-evaluated the patient an hour later. Subjectively, she reports feeling much more alert than before however feeling fatigued due to the Benadryl dose, she is able to breathe a little bit easier through her nose, and she feels her bilateral cheek edema has decreased. Her left eye still reports to have some swelling. Objectively speaking, she appears much improved with now a mild bilateral erythema to her cheeks, left swelling in the area, and does appear to be more alert. Her left eye continues to have [id number] swelling. During the last hour or so, she never complained of headache, vision changes, being in respiratory distress, chest pain, palpitations, nausea, or any other noted rashes appearing. I have now placed Benadryl 50 mg IV push every 4 hr p.r.n. Into the order set. I am uncertain as to what is causing this reaction. The daytime nurse believed to be the nystatin because she experienced similar reaction after receiving nystatin. For this reason I will hold nystatin tonight and this will need to be re-evaluated tomorrow by daytime physician. I spoke to nighttime nurse, Daisy, and she is fully aware of the situation. I encouraged the patient to informed the night nurse if her symptoms worsen. I gave report to cross coverage hospitalist regarding patient and occurring about events. History Information - Allergies/Home Medication List Allergies/Adverse Reactions: cefuroxime axetil [From Ceftin] Allergy (Intermediate, Verified 08/09/18 17:29) Other-Enter Comments clarithromycin [From Biaxin] Allergy (Intermediate, Verified 08/09/18 17:29) SEVERE VAG ITCHING erythromycin base [Erythromycin Base] Allergy (Unknown, Verified 08/09/18 17:29) Unknown PERFUMES, CERTAIN SCENTS Allergy (Intermediate, Uncoded 08/09/18 17:29) Other-Enter Comments Home Medications: Pantoprazole Sodium [Protonix 40mg (*)] 40 mg PO BID 06/11/14 [Last Taken 09:00] Acetaminophen [Tylenol ES 500 mg (*)] 500 mg PO Q6H PRN 08/09/18 [Last Taken Unknown] Albuterol [Ventolin Hfa Inhaler] 2 puffs IH DAILY PRN 08/09/18 [Last Taken Unknown] Calcium Carb/D3/Magnesium/Zinc [Bassem Mag Zinc + D Tablet] 1 each PO DAILY [Last Taken Unknown] Cholecalciferol (Vitamin D3) [Vitamin D3] 4,000 unit PO DAILY 08/09/18 [Last Taken Unknown] Di-Indole Methane - Dim 300mg 600 mg PO DAILY 08/09/18 [Last Taken 08/09/18 09: 00] Estradiol [Estradiol 1 MG (*)] 0 mg PO HS 08/09/18 [Last Taken 08/08/18 21:00] FLUoxetine HCL [Fluoxetine HCl] 40 mg PO DAILY 08/09/18 [Last Taken 08/09/18 09: 00] Fluticasone Nasal [Flonase Nasal [place] (RX)] 1 sprays NASAL BID 08/09/18 [Last Taken 08/09/18 09:00] Fluticasone/Salmeterol [Advair Hfa 115-21 Mcg Inhaler] 2 puffs IH BID 08/09/18 [ Last Taken 08/09/18 09:00] Herbals/Supplements -Info Only 1 ea PO DAILY 08/09/18 [Last Taken 08/09/18 09:00 ] Lactobacillus Acidophilus [ACIDOPHILUS] 2 each PO DAILY PRN 08/09/18 [Last Taken Unknown] Meloxicam 15 mg PO DAILY 08/09/18 [Last Taken 08/08/18 09:00] Mirabegron [Myrbetriq] 50 mg PO DAILY 08/09/18 [Last Taken 08/09/18 09:00] Montelukast Sodium [Singulair 10 mg (*)] 10 mg PO HS 08/09/18 [Last Taken 21:00] Multivitamins [Multivitamin (*)] 1 each PO DAILY 08/09/18 [Last Taken Unknown] [place]-3S/Dha/Epa/Fish Oil [Fish Oil [place]-3 Softgel] 500 mg PO BID 08/09/18 [ Last Taken 08/06/18] Ranitidine HCl 300 mg PO HS 08/09/18 [Last Taken 08/08/18 21:00] Testosterone Micronized 4 mg PO DAILY 08/09/18 [Last Taken 08/09/18 09:00] traMADol [Ultram 50 mg (*)] 50 mg PO DAILY PRN 08/09/18 [Last Taken Unknown] I have personally reviewed and updated: family history, medical history, social history, surgical history - Past Medical History arthritis, asthma - Surgical History Additional surgical history: R knee surgery. Rotator cuff surgery - Family History Additional family history: No hx AI disease - Social History Smoking Status: Former smoker Review of Systems Review of Systems: Physical Exam Physical Exam: Temp Pulse Resp BP Pulse Ox 36.9 C 100 16 135/77 H 92 08/10/18 20:19 08/10/18 19:18 08/10/18 19:18 08/10/18 19:18 08/10/18 19:18 O2 (L/minute) 93 Lab Data & Imaging Review 08/10/18 04:19 08/10/18 04:19 WBC 13.24 10^3/uL (3.80-9.50) H 08/10/18 04:19 RBC 3.74 10^6/uL (4.18-5.33) L 08/10/18 04:19 Hgb 12.5 g/dL (12.6-16.3) L 08/10/18 04:19 Hct 36.7 % (38.0-47.0) L 08/10/18 04:19 MCV 98.1 fL (81.5-99.8) 08/10/18 04:19 MCH 33.4 pg (27.9-34.1) 08/10/18 04:19 MCHC 34.1 g/dL (32.4-36.7) 08/10/18 04:19 RDW 12.8 % (11.5-15.2) 08/10/18 04:19 Plt Count 263 10^3/uL (150-400) 08/10/18 04:19 MPV 10.2 fL (8.7-11.7) 08/10/18 04:19 Neut % (Auto) 86.0 % (39.3-74.2) H 08/10/18 04:19 Lymph % (Auto) 6.9 % (15.0-45.0) L 08/10/18 04:19 [place] % (Auto) 6.4 % (4.5-13.0) 08/10/18 04:19 Eos % (Auto) 0.0 % (0.6-7.6) L 08/10/18 04:19 Baso % (Auto) 0.2 % (0.3-1.7) L 08/10/18 04:19 Nucleat RBC Rel Count 0.0 % (0.0-0.2) 08/10/18 04:19 Absolute Neuts (auto) 11.39 10^3/uL (1.70-6.50) H 08/10/18 04:19 Absolute Lymphs (auto) 0.91 10^3/uL (1.00-3.00) L 08/10/18 04:19 Absolute Monos (auto) 0.85 10^3/uL (0.30-0.80) H 08/10/18 04:19 Absolute Eos (auto) 0.00 10^3/uL (0.03-0.40) L 08/10/18 04:19 Absolute Basos (auto) 0.02 10^3/uL (0.02-0.10) 08/10/18 04:19 Absolute Nucleated RBC 0.00 10^3/uL (0-0.01) 08/10/18 04:19 Immature Gran % 0.5 % (0.0-1.1) 08/10/18 04:19 Immature Gran # 0.07 10^3/uL (0.00-0.10) 08/10/18 04:19 RBC/WBC/PLT Morphology TNP 08/09/18 18:43 Platelet Estimate TNP 08/09/18 18:43 ESR 12 MM/HR (0-30) 08/09/18 18:43 VBG Lactic Acid 1.3 mmol/L (0.7-2.1) 08/09/18 21:40 Sodium 136 mEq/L (135-145) 08/10/18 04:19 Potassium 4.6 mEq/L (3.5-5.2) 08/10/18 04:19 Chloride 104 mEq/L (97-110) 08/10/18 04:19 Carbon Dioxide 24 mEq/l (22-31) 08/10/18 04:19 Anion Gap 8 mEq/L (6-14) 08/10/18 04:19 BUN 13 mg/dL (7-23) 08/10/18 04:19 Creatinine 0.9 mg/dL (0.6-1.0) 08/10/18 04:19 Estimated GFR > 60 08/10/18 04:19 Glucose 142 mg/dL (70-100) H 08/10/18 04:19 Serum Osmolality 278 mosmo/kg (280-297) L 08/09/18 18:42 Calcium 9.1 mg/dL (8.5-10.4) 08/10/18 04:19 C-Reactive Protein 47.3 mg/L (<10.0) H 08/09/18 18:43 Procalcitonin 0.03 ng/mL (0.02-0.10) 08/09/18 18:43 Urine Color YELLOW 08/09/18 19:20 Urine Appearance CLEAR 08/09/18 19:20 Urine pH 6.0 (5.0-7.5) 08/09/18 19:20 Ur Specific [place] 1.009 (1.002-1.030) 08/09/18 19:20 Urine Protein NEGATIVE (NEGATIVE) 08/09/18 19:20 Urine Ketones NEGATIVE (NEGATIVE) 08/09/18 19:20 Urine Blood NEGATIVE (NEGATIVE) 08/09/18 19:20 Urine Nitrate NEGATIVE (NEGATIVE) 08/09/18 19:20 Urine Bilirubin NEGATIVE (NEGATIVE) 08/09/18 19:20 Urine Urobilinogen 2.0 EU (0.2-1.0) H 08/09/18 19:20 Ur Leukocyte Esterase NEGATIVE (NEGATIVE) 08/09/18 19:20 Urine Osmolality 545 mosmo/kg (300-900) 08/09/18 23:56 Ur Random Sodium 31 mEq/L (30-90) 08/09/18 23:56 Urine Glucose NEGATIVE (NEGATIVE) 08/09/18 19:20 Nasal Influenza A PCR NEGATIVE FOR FLU A (NEGATIVE) 08/09/18 18:29 Nasal Influenza B PCR NEGATIVE FOR FLU B (NEGATIVE) 08/09/18 18:29 Assessment & Plan Assessment: Back pain (Acute) Fever (Acute) Sepsis (Acute)
[2018-08-10] MEDS ORDERED: FAMOTIDINE 20 MG TAB PO SCH (21:00)
[2018-08-10] MEDS ORDERED: MONTELUKAST SODIUM 10 MG TAB PO SCH (21:00)
[2018-08-10] MEDS: EPA PO SCH (23:02)
[2018-08-10] MEDS: DHA PO SCH (23:02)
[2018-08-10] MEDS: FISH OIL PO SCH (23:02)
[2018-08-10] MEDS: OMEGA PO SCH (23:02)
[2018-08-10] MEDS: FLUTICASONE/SALMETER 250/50MCG DISKUS IH SCH (23:03)
[2018-08-11] MEDS: NYSTATIN SUSP 500000 UNIT/5 ML UD LIQ PO SCH ×2 (05:51→11:42)
[2018-08-11 07:18] VITALS: BP 102/69
[2018-08-11] MEDS: ENOXAPARIN 40 MG/0.4 ML SYR SC SCH (08:51)
[2018-08-11] MEDS: FLUoxetine 20 MG CAP PO SCH (08:52)
[2018-08-11] MEDS: PANTOPRAZOLE SODIUM 40 MG TAB PO SCH (08:52)
[2018-08-11] MEDS: FLUTICASONE NASAL 120 SPRAYS/16 GM MDI NS SCH (08:53)
[2018-08-11] MEDS ORDERED: MAGNESIUM PO SCH (09:00)
[2018-08-11] MEDS ORDERED: D3 PO SCH (09:00)
[2018-08-11] MEDS ORDERED: TESTOSTERONE PO SCH (09:00)
[2018-08-11] MEDS ORDERED: [UNRECOGNIZED DRUG - OTHER] PO SCH (09:00)
[2018-08-11] MEDS ORDERED: CHOLECALCIFEROL VIT D3 2,000 UNITS TAB/CAP PO SCH (09:00)
[2018-08-11] MEDS ORDERED: Herbals/Supplements -Info Only PO SCH (09:00)
[2018-08-11] MEDS ORDERED: CALCIUM CARB PO SCH (09:00)
[2018-08-11] MEDS ORDERED: MULTIVITAMINS 1 EACH TAB PO SCH (09:00)
[2018-08-11] MEDS ORDERED: ZINC PO SCH (09:00)
[2018-08-11] MEDS: ACETAMINOPHEN 325 MG TAB PO PRN (09:05)
[2018-08-11] MEDS: FISH OIL PO SCH (09:06)
[2018-08-11] MEDS: Mirabegron [Myrbetriq] 50 MG PO SCH (09:06)
[2018-08-11] MEDS: DHA PO SCH (09:06)
[2018-08-11] MEDS: OMEGA PO SCH (09:06)
[2018-08-11] MEDS: EPA PO SCH (09:06)
[2018-08-11] MEDS ORDERED: predniSONE 20 MG TAB PO ONE (09:26)
[2018-08-11] MEDS ORDERED: FLUCONAZOLE 150 MG TAB PO ONE (09:26)
--- NOTE | 2018-08-11 09:31 | HOSPPROG ---
Hospitalist Progress Note Assessment/Plan: 67 yo F w chronic lbp, asthma, admited w fever, thrush and now facial rash facial rash: suspect this is rxn to nystatin, given benadryl not cellulitis, abscess persistent this AM- add'l dose pred abx dc's yesterday fever, dyspnea: on unusual hormone replacement w testosterone- check ct pe CT PE neg suspect viral infection w RAD neg viral panel noted low procalcitonin also noted low back pain: mri w no abscess, there is no cellulitis on exam, as suggested by MRI asthma: continue meds no wheezing proph: lmwh thrush: fluconazole X 1 attributable to steroid inhaler dispo: change to inpt home today of facial rash improved Subjective: CT w no PE, no pneumonia (interp by me). facial CT w no cellulitis , abscess. d/w dr rodriguez Objective: Vital Signs Temp Pulse Resp BP Pulse Ox 36.7 C 86 16 102/69 98 08/11/18 07:17 08/11/18 08:50 08/11/18 08:50 08/11/18 07:17 08/11/18 08:50 Microbiology 08/10/18 02:30 Respiratory Panel (PCR) - Final Nasal, Sinus - Swab No Organism Detected By Pcr Laboratory Results 08/10/18 04:19 08/10/18 04:19 08/10/18 08/11/18 08/12/18 05:59 05:59 05:59 Intake Total 200 1250 Output Total 500 2500 Balance -300 -1250 - Physical Exam Constitutional: no apparent distress, appears nourished Eyes: PERRL, anicteric sclera Ears, Nose, Mouth, Throat: moist mucous membranes, hearing normal, other ( facial erythema and swelling decreased) Cardiovascular: regular rate and rhythym, no murmur, rub, or gallop Respiratory: no respiratory distress, no rales or rhonchi Gastrointestinal: normoactive bowel sounds, soft, non-tender abdomen Genitourinary: no bladder fullness, No martinez in urethra Skin: warm, normal color Musculoskeletal: full muscle strength Neurologic: AAOx3 Psychiatric: interacting appropriately ICD10 Worksheet Patient Problems: Problems Problem Status Onset Back pain Acute Fever Acute Sepsis Acute Osteoarthritis of knee Acute
[2018-08-11] MEDS: FLUTICASONE/SALMETER 250/50MCG DISKUS IH SCH (09:53)
--- NOTE | 2018-08-11 10:28 | ASMTCMCOM ---
CM Note CM Note Notes: Met with Pt who is feeling better this morning after a reaction ? medication. Facial redness and swelling still present but just received medication and DR Clark will reassess for discharge by 1400. Pt has no needs at this time but CM available should needs arise. PLAN Likely Home independently Date Signed: 08/11/2018 10:28 AM Electronically Signed By:Paula Lucia
--- NOTE | 2018-08-11 14:24 | GDS ---
[f rep st] DISCHARGE SUMMARY DISCHARGE DIAGNOSES: 1. Low back pain with unchanged MRI. 2. Fever, likely secondary to viral illness. 3. Allergic reaction either to morphine or gadolinium. 4. Asthma. HOSPITAL COURSE: Please see admission history and physical by Dr. Ernst Caba. The patient presented with worsening low back pain and fevers. She had an MRI with contrast showing no evidence of epidural abscess, diskitis, etc. There was some question of a cellulitis in her low back, which is not seen on physical exam. She had a chest x-ray showing no pneumonia. The patient was afebrile here. She had a normal procalcitonin and negative upper respiratory viral panel. She did not have s epsis. She did have leukocytosis. She was managed without antibiotics. On the first hospital day, the nata ent developed an erythematous indurated rash on her cheeks with edema of her epicanthal fold. This w as initially attributed to a nystatin allergy as she received some Swish and Swallow for thrush. (She has thrush from oral steroid inhaler.) Further review of medication timeline reveals that it started prior to receiving nystatin and is seco ndary to either morphine or gadolinium, I favor the latter. The patient had a CT of her face to rule out for possible delayed presentation of cellulitis. It did not show evidence of cellulitis, just s kin thickening. She did have an elevated CRP with a normal sedimentation rate. At this point in tiana e, I have a low suspicion for a rheumatologic illness. The patient is actually feeling well and plan jose on going home today. Additionally, secondary to diagnostic uncertainty of the overall clinical picture, a CT of the chest with contrast showed no pulmonary embolism and no significant parenchymal disease. Discharge diagnos es are viral syndrome with worsening low back pain and allergic reaction. She is discharged home on unchanged medication regimen. We talked about the reasons to return to the hospital including worsening fever, pain with movement of her eyes, confusion, etc. /[id number]/MODL
--- NOTE | 2018-08-11 18:05 | PDMN ---
Medical Necessity Medical necessity: Change to IP, as of 08/10/18, per & [facility]; los >2 mn for ongoing management of new facial rash possibly r/ t nyastatin w/concurrent low grade temp & concern for cellulitis, as well as ongoing back pain; requiring further monitoring, facial CT & med management; hx asthma
[2018-08-12] MEDS ORDERED: [UNRECOGNIZED DRUG - OTHER] PO SCH (09:00)
== END 2018-08-11 14:58 | disposition home or self-care (01) | DRG 552 ==
LOC: F3N 22:27 → OBSVTOIN 08-10 15:05
PROVIDERS: ADMIT Student in an Organized Health Care Education/Training Program; ATTEND Internal Medicine
DX: M54.9 Dorsalgia, unspecified (principal); E87.1 Hypo-osmolality and hyponatremia; L27.0 Generalized skin eruption due to drugs and medicaments taken internally; T50.8X5A Adverse effect of diagnostic agents, initial encounter; B34.9 Viral infection, unspecified; J45.909 Unspecified asthma, uncomplicated; B37.0 Candidal stomatitis; T38.0X5A Adverse effect of glucocorticoids and synthetic analogues, initial encounter
CPT/HCPCS: 96374; A9585; G0378; J1170; J1200; J1650; J2270; J3370; J7512; Q9967

== ENCOUNTER 2018-08-29 14:58 | Emergency (ER) | payer OTHER ==
--- NOTE | 2018-08-29 15:19 | EDPHY ---
H & P Stated Complaint: sharp pain left chest starting at 1330 Time Seen by Provider: 08/29/18 15:10 HPI/ROS: CHIEF COMPLAINT: Sharp episodic chest pain HISTORY OF PRESENT ILLNESS: The patient presents the ED with several episodes of sharp episodic left-sided chest pain. The patient denies prior history of coronary artery disease. Patient does have a history of chronic sciatica with right leg pain and radicular symptoms. The patient was hospitalized for fever and back pain several weeks ago. At that point time she was diagnosed with a bronchitis. She did have a CT pulmonary angiogram during that hospitalization which was negative. The patient denies any asymmetric calf pain or swelling. She denies any history of exertional chest pain or shortness of breath. She currently is asymptomatic. REVIEW OF SYSTEMS: A comprehensive 10 point review of systems is otherwise negative aside from elements mentioned in the history of present illness. Source: Patient - Personal History Current Tetanus/Diphtheria Vaccine: Yes Current Tetanus Diphtheria and Acellular Pertussis (TDAP): Yes - Medical/Surgical History Hx Asthma: Yes Hx Chronic Respiratory Disease: No Hx Diabetes: No Hx Cardiac Disease: No Hx Renal Disease: No Hx Cirrhosis: No Hx Alcoholism: No Hx HIV/AIDS: No Hx Splenectomy or Spleen Trauma: No Other PMH: L5 inpinge, knee total R, shoulder repair R, hyster, bladde sling, asthma,. depression, - Social History Smoking Status: Former smoker - Physical Exam Exam: General Appearance: Alert, no distress Eyes: Pupils equal and round no pallor or injection ENT, Mouth: Mucous membranes moist Respiratory: There are no retractions, lungs are clear to auscultation, tenderness to palpation over the left costochondral junction Cardiovascular: Regular rate and rhythm Gastrointestinal: Abdomen is soft and nontender, no masses, bowel sounds normal Neurological: A&O, normal motor function, normal sensory exam, normal cranial nerves Skin: Warm and dry, no rashes Musculoskeletal: Neck is supple nontender Extremities: symmetrical, full range of motion Psychiatric: Patient is oriented X 3, there is no agitation Constitutional: Initial Vital Signs Temperature (C) 37 C 08/29/18 15:01 Heart Rate 93 08/29/18 15:01 Respiratory Rate 18 08/29/18 15:01 Blood Pressure 149/89 H 08/29/18 15:01 O2 Sat (%) 96 04/29/19 15:01 O2 Delivery Mode Room Air Allergies/Adverse Reactions: cefuroxime axetil [From Ceftin] Allergy (Intermediate, Verified 08/09/18 17:29) Other-Enter Comments clarithromycin [From Biaxin] Allergy (Intermediate, Verified 08/09/18 17:29) SEVERE VAG ITCHING erythromycin base [Erythromycin Base] Allergy (Unknown, Verified 08/09/18 17:29) Unknown PERFUMES, CERTAIN SCENTS Allergy (Intermediate, Uncoded 08/09/18 17:29) Other-Enter Comments Home Medications: Medication Instructions Recorded Pantoprazole Sodium [Protonix 40mg 40 mg PO BID 06/11/14 (*)] Acetaminophen [Tylenol ES 500 mg 500 mg PO Q6H PRN 08/09/18 (*)] Albuterol [Ventolin Hfa Inhaler] 2 puffs IH DAILY PRN 08/09/18 Calcium Carb/D3/Magnesium/Zinc 1 each PO DAILY 08/09/18 [Bassem Mag Zinc-D Tablet] Cholecalciferol (Vitamin D3) 4,000 unit PO DAILY 08/09/18 [Vitamin D3] Di-Indole Methane - Dim 300mg 600 mg PO DAILY 08/09/18 Estradiol [Estradiol 1 MG (*)] 0 mg PO HS 08/09/18 FLUoxetine HCL [Fluoxetine HCl] 40 mg PO DAILY 08/09/18 Fluticasone Nasal [Flonase Nasal 1 sprays NASAL BID 08/09/18 [place]] Fluticasone/Salmeterol [Advair Hfa 2 puffs IH BID 08/09/18 115-21 Mcg Inhaler] Herbals/Supplements -Info Only 1 ea PO DAILY 08/09/18 Lactobacillus Acidophilus 2 each PO DAILY PRN 08/09/18 [ACIDOPHILUS] Meloxicam 15 mg PO DAILY 08/09/18 Mirabegron [Myrbetriq] 50 mg PO DAILY 08/09/18 Montelukast Sodium [Singulair 10 10 mg PO HS 08/09/18 mg (*)] Multivitamins [Multivitamin (*)] 1 each PO DAILY 08/09/18 Nikolai-3S/Dha/Epa/Fish Oil [Fish 500 mg PO BID 08/09/18 Oil Nikolai-3 Softgel] Ranitidine HCl 300 mg PO HS 08/09/18 Testosterone Micronized 4 mg PO DAILY 04/09/19 traMADol [Ultram 50 mg (*)] 50 mg PO DAILY PRN 08/09/18 Medical Decision Making - Diagnostics EKG Interpretation: EKG: Complete interpretation has been separately recorded in the [employer] archive. Summary impression: Sinus rhythm, rate 89, inferior Q-waves, no ST segment elevation or depression noted ED Course/Re-evaluation: Patient presents the ED with atypical sharp left-sided chest pain lasting seconds at a time today. There is a reproducible component to her chest pain. She has no clinical evidence of a DVT. She recently had a CT pulmonary angiogram which was negative. Her symptoms are not consistent with PE given the intermittent nature. The patient's EKG demonstrates no evidence of ischemia and her troponin is normal. The patient did recently start working with a physical therapist. I do believe the source of her pain is likely musculoskeletal or pleuritic in nature. I think it is reasonable to have her treat her symptoms with NSAIDs. She has been advised to return to the ED for worsening pain, exertional chest pain or shortness of breath. Differential Diagnosis: Differential diagnosis considered includes costochondritis, pericarditis, pleurisy, acute coronary syndrome - Data Points Laboratory Results: 08/29/18 15:13 POC Troponin I 0.00 ng/mL ng/mL (0.00-0.08) Medications Given: Discontinued Medications Ketorolac Tromethamine (Toradol) 15 mg IVP EDNOW ONE Stop: 08/29/18 15:45 Last Admin: 08/29/18 15:59 Dose: 15 mg Point of Care Test Results: Chemistry 08/29/18 15:13 POC Troponin I 0.00 ng/mL ng/mL (0.00-0.08) Departure - Departure Disposition: Home, Routine, Self-Care Clinical Impression: Chest pain Condition: Good Instructions: Chest Pain (ED) Additional Instructions: 1. The workup in the emergency department today is unremarkable. I do believe your likely experiencing musculoskeletal or cartilage based irritation which is causing her pain. I do recommend continuing your meloxicam. 2. Return to the ED sooner for any increasing chest pain, severe shortness of breath or other concerns. 3. Please follow-up with your primary care provider in the next 2-3 days for a recheck. 4. The testing performed in the emergency department today demonstrate no evidence of a obvious cardiac condition. Because it is difficult to fully evaluate the presence of coronary artery disease it is imperative that you return to the ED immediately for any worsening symptoms. Referrals: Rocio Baxter RN, DIRECTOR OF FINANCIAL REPORTING [Primary Care Provider] - As per Instructions
[2018-08-29] MEDS ORDERED: KETOROLAC 15 MG/1 ML SDV IVP ONE (15:44)
[2018-08-29 16:03] VITALS: BP 127/78
--- NOTE | 2018-08-29 17:11 | CPEKG ---
Test Reason : OPEN Blood Pressure : / mmHG Vent. Rate : 089 BPM Atrial Rate : 089 BPM P-R Int : 151 ms QRS Dur : 097 ms QT Int : 376 ms P-R-T Axes : 055 -40 011 degrees QTc Int : 458 ms Sinus rhythm Inferior infarct, old Confirmed by Murali Chaparro ([id number]) on 08/29/2018 5:10:55 PM Referred By: Murali Chaparro Confirmed By:Murali Chaparro
== END 2018-08-29 16:51 | disposition home or self-care (01) ==
DX: R07.9 Chest pain, unspecified (principal)
CPT/HCPCS: 93005; 96374; 99284; J1885; 84484-ER